=== PATIENT | male | born 1930 | race Caucasian/White ===

== ENCOUNTER 2018-02-27 10:13 | Inpatient (IN) | payer OTHER ==
[~2018-02-27] VITALS: Ht 170.2 cm; Wt 89.5 kg
[2018-02-27] MEDS ORDERED: CHLORTHALIDONE25 M1 PO (11:39)
[2018-02-27] MEDS ORDERED: VITAMIN D1000 UNIT PO (11:39)
[2018-02-27] MEDS ORDERED: ELIQUIS5 M1 PO (11:39)
[2018-02-27] MEDS ORDERED: MAGNESIUM500 M2 PO (11:40)
[2018-02-27] MEDS ORDERED: LOVASTATIN40 M1 PO (11:40)
[2018-02-27] MEDS ORDERED: METOPROLOL SUCC50 M2 PO (11:40)
[2018-02-27] MEDS ORDERED: LISINOPRIL40 M1 PO (11:40)
[2018-02-27] MEDS ORDERED: TAMSULOSIN HCL0.4 M1 PO (11:41)
[2018-02-27] MEDS ORDERED: POTASSIUM99 M3 PO (11:41)
[2018-02-27 11:44] LABS: ABSOLUTE BASOPHIL COUNT 0.1 /CUMM (0.0-0.2); ABSOLUTE EOSINOPHIL COUNT 0.1 /CUMM (0.0-0.7); ABSOLUTE GRANULOCYTE CT 7.1 /CUMM (1.4-6.5); ABSOLUTE LYMPH COUNT 0.8 /CUMM (1.2-3.4); ABSOLUTE MONOCYTE COUNT 1.1 /CUMM (0.10-0.60); BASOPHIL % 0.6 % (0.0-2.0); EOSINOPHIL % 0.6 % (0-5); GRANULOCYTE % 77.8 % (42.2-75.2); HEMATOCRIT 41.2 % (42-52); MEAN CORPUSCULAR HGB 30.6 PG (27.0-31.0); MEAN CORPUSCULAR HGB CONC 33.7 G/DL (33.0-37.0); MEAN CORPUSCULAR VOLUME 90.9 FL (80.0-94.0); MEAN PLATELET VOLUME 11.5 FL (7.4-10.4); PLATELET COUNT 228 /CUMM (130-400); RBC DISTRIBUTION WIDTH 13.6 % (11.5-14.5); RED BLOOD CELL CT 4.53 /CUMM (4.70-6.10); WHITE BLOOD CELL COUNT 9.1 /CUMM (4.8-10.8)
--- NOTE | 2018-02-27 12:03 | ED GI/GU/ABDOMINAL COMPLAINT ---
History of Present Illness General Chief Complaint: Male Genitourinary Problems Stated Complaint: SENT IN FOR UTI? Source: patient, family Exam Limitations: no limitations Vital Signs & Intake/Output Vital Signs & Intake/Output Vital Signs Date Time Temp Pulse Resp B/P B/P Pulse O2 O2 Flow FiO2 Mean Ox Delivery Rate 02/27 1614 98.1 91 16 164/44 97 Room Air 02/27 1343 Room Air 02/27 1305 98.6 75 16 131/63 97 Room Air 02/27 1019 97.0 84 16 121/61 97 Room Air Allergies Coded Allergies: No Known Allergies (02/27/18) Triage Note: 87 Y/O MALE SENT BY DR BROWN FOR EVAL OF CONTINUED UTI SYMPTOMS X 1 WEEK; DESPITE BEING ON COURSE OF ANTIBIOTICS. PT STATES HE HAS PAIN WITH URINATION AND HEMATURIA. DENIES LOW BACK PAIN. DENIES N/V/D. DENIES FEVERS. STATES HE FEELS "WELL" OTHERWISE. Triage Nurses Notes Reviewed? yes Onset: Abrupt Duration: day(s): (10), constant, continues in ED, getting worse Timing: single episode today Quality/Severity: fullness Severity Numbers: 6 Location: suprapubic, urethral Radiation: no radiation Activities at Onset: none Prior Abdominal Problems: none Past Sexual History: Unobtainable at this time No Modifying Factors: none Modifying Factors: Worsens With: urinating. Associated Symptoms: urinary frequency HPI: 87 YEAR OLD MALE WITH HX OF AFIB ON ELIQUIS PRESENTS FOR EVAL OF HEMATURIA, FREQUENCY AND URGENCY. SYMPTOMS HAVE BEEN GOING ON FOR 10 DAYS. He was initially seen by his primary care doctor and was started on Bactrim. Urine culture that time was positive. He states that since then he has had worsening gross hematuria is also passing clots. He reports he feels the need to urinate but only small amount of urine is coming out. He has some superpubic pressure. No fever or back pain no chest pain or shortness of breath. History of BPH and has had prostate surgery in the past unsure exactly what OR what for. No history of prostate cancer. (Niko RICHARDS,Jimmy) Reconcile Medications Apixaban (Eliquis) 5 MG TABLET 1 TAB PO BID BLOOD THINNER (Reported) Chlorthalidone 25 MG TABLET 1 TAB PO DAILY WATER RETENTION (Reported) Cholecalciferol (Vitamin D3) (Vitamin D) 1,000 UNIT TABLET 1 TAB PO DAILY VITAMIN SUPPORT (Reported) Lisinopril 40 MG TABLET 1 TAB PO DAILY HEART (Reported) Lovastatin 40 MG TABLET 1.5 TAB PO DAILY CHOLESTEROL (Reported) with food Magnesium Oxide (Magnesium) 500 MG CAPSULE 1 CAP PO DAILY SUPPLEMENT ( Reported) Metoprolol Succinate 50 MG TAB.ER.24H 1 TAB PO DAILY HEART (Reported) Potassium 99 MG TABLET 1 TAB PO DAILY SUPPLEMENT (Reported) Tamsulosin HCl 0.4 MG CAP.ER.24H 1 CAP PO DAILY BPH (Reported) (Blaise Munoz DO) Past History Travel History Traveled to [place] past 21 day No Medical History Any Pertinent Medical History? 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 No (Jimmy Sawyer) Review of Systems Review of Systems Constitutional: Reports: no symptoms. EENTM: Reports: no symptoms. Respiratory: Reports: no symptoms. Cardiovascular: Reports: no symptoms. GI: Reports: no symptoms. Genitourinary: Reports: see HPI, frequency, hematuria, hesitation, urgency. Musculoskeletal: Reports: no symptoms. Skin: Reports: no symptoms. Neurological/Psychological: Reports: no symptoms. Hematologic/Endocrine: Reports: no symptoms. Immunologic/Allergic: Reports: no symptoms. All Other Systems: Reviewed and Negative (Jimmy Sawyer) Physical Exam Physical Exam General Appearance: well developed/nourished, no apparent distress, alert, awake Head: atraumatic, normal appearance Eyes: Bilateral: normal appearance, PERRL, EOMI. Ears, Nose, Throat, Mouth: hearing grossly normal, moist mucous membrane Neck: normal inspection, supple, full range of motion Respiratory: normal breath sounds, chest non-tender, no respiratory distress, lungs clear Cardiovascular: regular rate/rhythm, normal peripheral pulses Peripheral Pulses: 2+ radial (R), 2+ radial (L) Gastrointestinal: normal bowel sounds, soft, no organomegaly, tenderness ( suprapubic) Back: normal inspection, normal range of motion, no CVA tenderness Extremities: normal range of motion Neurologic/Psych: no motor/sensory deficits, awake, alert, oriented x 3, normal gait, normal mood/affect Skin: intact, normal color, warm/dry Core Measures ACS in differential dx? No Sepsis Present: No Sepsis Focused Exam Completed? No (Niko RICHARDS,Jimmy) Progress Differential Diagnosis: prostatitis, pyelonephritis, SBO, ureterolithiasis, urinary retention, urethritis, UTI/pyelo, prostate cancer, bladder cancer, renal cell carcinoma, obstructive uropathy Plan of Care: Orders Procedure Date/time Status CBC WITHOUT DIFFERENTIAL 02/28 06 Active BASIC ELECTROLYTES PLUS BUN&CR 02/28 06 Active Regular Diet 02/27 D Active Weight 02/27 1735 Active Vital Signs 02/27 1735 Active Teach/Educate 02/27 173 Active Pain Treatment and Response 02/27 173 Active Nutritional Intake, Monitor 02/27 173 Active Isolation 02/27 1735 Active Intake & Output 02/27 1735 Active Patient Care Conference 02/27 1735 Active Activity/Ambulation 02/27 1735 Active Lab Add-on Test 02/27 1529 Active Pathway - chart 02/27 1522 Active House Staff 02/27 1522 Active Code Status 02/[address] in observation 02/27 1510 Active ED Holding Orders 02/27 1510 Active Vital Signs 02/27 1510 Active Code Status 02/27 1510 Complete Patient Data 02/27 1435 Active Intake & Output 02/27 1431 Active LACTIC ACID 02/27 1413 Complete EKG 02/27 1335 Active Continuous Bladder Irrigation 02/27 1235 Active Farah, Insertion/Removal/Asses 02/27 1214 Active CULTURE,URINE 02/27 1214 Active Add-on Test (ER Only) 02/27 1201 Active PARTIAL THROMBOPLASTIN TIME 02/27 1130 Complete PROTHROMBIN TIME 02/27 1130 Complete URINE TOTAL PROT/CREAT RATIO 02/27 1113 Complete URINALYSIS 02/27 1113 Complete TROPONIN LEVEL 02/27 1113 Complete LACTIC ACID 02/27 1113 Complete COMPREHENSIVE METABOLIC PANEL 02/27 1113 Complete CBC WITHOUT DIFFERENTIAL 02/27 1113 Complete VTE Mechanical Prophylaxis 02/27 UNK Active Nursing Misc 02/27 UNK Active Current Medications Sig/Markos Start time Last Medication Dose Stop Time Status Admin Magnesium Oxide 400 MG DAILY 02/28 0900 AC (Mag-Ox) Metoprolol Succinate 50 MG DAILY 02/28 0900 AC (Toprol Xl) Tamsulosin HCl 0.4 MG DAILY 02/28 0900 AC (Flomax) Ampicillin 1,000 MG Q6 02/27 1800 AC (Omnipen) Sodium Chloride 100 ML (Normal Saline 0.9%) Atorvastatin Calcium 20 MG 1700 02/27 1700 AC (Lipitor) Ceftriaxone Sodium 1,000 MG Q24H 02/27 1700 CAN (Rocephin) Cholecalciferol 1,000 IU DAILY 02/27 1611 AC (Vitamin D) Acetaminophen 650 MG Q6P PRN 02/27 1530 AC (Tylenol) Laboratory Tests 02/27/18 1418: Lactic Acid < 0.5 L 02/27/18 1154: Urine Color BLDY H, Urine Clarity CLDY H, Urine pH 7.0, Ur Specific [place] 1.015, Urine Protein >=300 H, Urine Ketones 15 H, Urine Nitrite POS H, Urine Bilirubin NEG@ICTO, Urine Urobilinogen >=8.0 H, Ur Leukocyte Esterase MOD H, Ur Microscopic SEDIMENT EXAMINED, Urine RBC PACKD H, Urine WBC 15-25 H, Ur Epithelial Cells RARE, Micro UA Comment , Urine Hemoglobin LARGE H, Urine Glucose 100 H 02/27/18 1130: Anion Gap 15, Estimated GFR 52 L, BUN/Creatinine Ratio 19.2, Glucose 110 H, Lactic Acid 3.3 H, Calcium 9.2, Total Bilirubin 0.9, AST 60 H, ALT 60, Alkaline Phosphatase 65, Troponin I 0.02, Total Protein 7.2, Albumin 3.8, Globulin 3.4, Albumin/Globulin Ratio 1.1, PT 18.0 H, INR 1.64 H, APTT 31, CBC w Diff NO MAN DIFF REQ, RBC 4.53 L, MCV 90.9, MCH 30.6, MCHC 33.7, RDW 13.6, MPV 11.5 H, Gran % 77.8 H, Lymphocytes % 8.9 L, Monocytes % 12.1 H, Eosinophils % 0.6, Basophils % 0.6, Absolute Granulocytes 7.1 H, Absolute Lymphocytes 0.8 L, Absolute Monocytes 1.1 H, Absolute Eosinophils 0.1, Absolute Basophils 0.1 02/27/18 1113: Ur Random Creatinine 140.9, U Random Total Protein 3820 H, Protein/Creatinin Ratio 27.1 H Microbiology 02/27 1214 URINE ROUT: Urine Culture - ORD Patient is here with gross hematuria. He is anticoagulated. Patient was bladder scanned and is showing almost 2 L in his bladder. A Farah was placed and removed the 2 L. CBI was initiated. Urine is showing signs of infection cultures were sent. Blood work shows a lactic acid of 3.[address] scan of the abdomen and pelvis is unremarkable. Spoke with urologist Dr. SOTO he'll come to see the patient. Hold Lannyis. Patient will require admission for urology consult, serial labs, IV fluids, IV antibiotics. Schedule Dr. Munoz he agrees. Diagnostic Imaging: Viewed by Me: CT Scan. Discussed w/RAD: CT Scan. Radiology Impression: PATIENT: ROSA M POLLARD PRESENT AGE: 87 PATIENT ACCOUNT NO: [id number] : [birth year] LOCATION: [facility] ORDERING PHYSICIAN: Jimmy RICHARDS SERVICE DATE: 02/27/18 EXAM TYPE: CAT - CT ABD & PELVIS W/O IV CONTRAS EXAMINATION: CT ABDOMEN AND PELVIS WITHOUT CONTRAST CLINICAL INFORMATION: Hematuria, urinary frequency and urgency. Differential diagnosis includes kidney stones, pyelonephritis and prostatitis. COMPARISON: 03/14/2008 TECHNIQUE: Multidetector volumetric imaging was performed from the superior aspect of the liver through the pubic symphysis. Sagittal and coronal reformatted images were obtained on the technologist's workstation. DLP: 406.12 mGy-cm FINDINGS: LUNG BASES: Pacer lead projects over the right ventricle. LIVER, GALLBLADDER, AND BILIARY TREE: The liver is normal in size, shape, and attenuation. No focal hepatic lesion or biliary ductal dilatation is present. The gallbladder is unremarkable with no evidence of radiopaque gallstones, gallbladder wall thickening, or obvious pericholecystic inflammatory changes. PANCREAS: Unremarkable. SPLEEN: Unremarkable. ADRENAL GLANDS: Unremarkable. KIDNEYS AND URETERS: The kidneys are normal in size, shape, and attenuation. No hydronephrosis, hydroureter, or calculi are seen. Vascular calcifications. No perinephric stranding. BLADDER: The bladder is decompressed with a Farah catheter and cannot be evaluated. GASTROINTESTINAL TRACT: Diverticulosis without CT evidence of diverticulitis. No evidence of bowel obstruction. The appendix is not seen but there are no inflammatory changes around the cecum to suggest acute appendicitis. Small to moderately sized hiatal hernia. ABDOMINAL WALL: Right inguinal hernia repair appears intact. No significant or recurrent abdominal wall hernia. No abdominal ascites. LYMPH NODES: No lymphadenopathy within the abdomen or pelvis. VASCULAR: Marked atherosclerosis of the abdominal aorta without evidence of aneurysm. PELVIC VISCERA: Mild enlargement of the prostate gland. No pelvic ascites. OSSEOUS STRUCTURES: Diffusely decreased bone mineral density. Degenerative changes of the spine. No suspicious or acute osseous abnormality. IMPRESSION: 1. No evidence of acute abnormality within the abdomen or pelvis. No evidence of urolithiasis. 2. The bladder is decompressed with a Farah catheter and cannot be evaluated. 3. The prostate is mildly enlarged. 4. Diverticulosis without CT evidence of diverticulitis. DICTATED BY: Vivien Morocho MD DATE/TIME DICTATED:1338 RUBBER SPLICER:JAC DATE/TIME TRANSCRIBED:02/27/181338 CONFIDENTIAL, DO NOT COPY WITHOUT APPROPRIATE AUTHORIZATION. Initial ED EKG: AFIB (RATE 78), VENTRICULAR PACED (Jimmy Sawyer) Departure Departure Disposition: STILL A PATIENT Condition: Stable Clinical Impression Primary Impression: Hematuria Qualifiers: Hematuria type: gross Qualified Code: R31.0 - Gross hematuria Referrals: Chalo SANTOS,James Guerrero (PCP/Family) Departure Forms: Customer Survey General Discharge Information Observation Note Spoke With: Santiago Ray MD Physician Advisor Notified: BLAISE MUNOZ DO Place Patient In: Non-ED OBS Care Area Rationale for Observation: My rational for observation is as follows [serial labs, IV antibiotics, follow- up cultures, urology consult, IV fluids]. (Jimmy Sawyer) PA/CHOIR MEMBER Co-Sign Statement Statement: ED Attending supervision documentation- [X] I saw and evaluated the patient. I have also reviewed all the pertinent lab results and diagnostic results. I agree with the findings and the plan of care as documented in the PA's/CHOIR MEMBER's documentation. [] I have reviewed the ED Record and agree with the PA's/CHOIR MEMBER's documentation. [] Additions or exceptions (if any) to the PAs/CHOIR MEMBER's note and plan are summarized below: [] I saw and personally examined the patient and I agree with the PAs evaluation. Severe gross hematuria. He is being admitted to the hospital for further care. (Blaise Munoz DO)
[2018-02-27 12:26] LABS: PTT 31 SEC (25-37)
--- NOTE | 2018-02-27 14:03 | CT SCAN REPORT ---
EXAMINATION: CT ABDOMEN AND PELVIS WITHOUT CONTRAST CLINICAL INFORMATION: Hematuria, urinary frequency and urgency. Differential diagnosis includes kidney stones, pyelonephritis and prostatitis. COMPARISON: 03/14/2008 TECHNIQUE: Multidetector volumetric imaging was performed from the superior aspect of the liver through the pubic symphysis. Sagittal and coronal reformatted images were obtained on the technologist's workstation. DLP: 406.12 mGy-cm FINDINGS: LUNG BASES: Pacer lead projects over the right ventricle. LIVER, GALLBLADDER, AND BILIARY TREE: The liver is normal in size, shape, and attenuation. No focal hepatic lesion or biliary ductal dilatation is present. The gallbladder is unremarkable with no evidence of radiopaque gallstones, gallbladder wall thickening, or obvious pericholecystic inflammatory changes. PANCREAS: Unremarkable. SPLEEN: Unremarkable. ADRENAL GLANDS: Unremarkable. KIDNEYS AND URETERS: The kidneys are normal in size, shape, and attenuation. No hydronephrosis, hydroureter, or calculi are seen. Vascular calcifications. No perinephric stranding. BLADDER: The bladder is decompressed with a Farah catheter and cannot be evaluated. GASTROINTESTINAL TRACT: Diverticulosis without CT evidence of diverticulitis. No evidence of bowel obstruction. The appendix is not seen but there are no inflammatory changes around the cecum to suggest acute appendicitis. Small to moderately sized hiatal hernia. ABDOMINAL WALL: Right inguinal hernia repair appears intact. No significant or recurrent abdominal wall hernia. No abdominal ascites. LYMPH NODES: No lymphadenopathy within the abdomen or pelvis. VASCULAR: Marked atherosclerosis of the abdominal aorta without evidence of aneurysm. PELVIC VISCERA: Mild enlargement of the prostate gland. No pelvic ascites. OSSEOUS STRUCTURES: Diffusely decreased bone mineral density. Degenerative changes of the spine. No suspicious or acute osseous abnormality. IMPRESSION: 1. No evidence of acute abnormality within the abdomen or pelvis. No evidence of urolithiasis. 2. The bladder is decompressed with a Farah catheter and cannot be evaluated. 3. The prostate is mildly enlarged. 4. Diverticulosis without CT evidence of diverticulitis.
--- NOTE | 2018-02-27 14:42 | Cons- Urology ---
General Information and HPI Consulting Request Date of Consult: 02/27/18 Requested By: ER staff Reason for Consult: Gross hematuria Source of Information: patient, family Exam Limitations: no limitations History of Present Illness: This patient has had about 1 week of dysuria, urinary frequency and difficulty voiding. He was treated with abx by his pcp but his sx's did not improve. He then developed gross hematuria with clots and was referred to the ER. He denies fever, chills or back pain. He is on eloquis for A-fib. He has a remote, light smoking hx. He underwent a TURP many years ago by Dr Rebekah Santoyo. He remembers having one previous UTI several years ago. He denies having gross hematuria in the past. In the ER a desai was placed for 800 cc of bloody urine. CBI was started and the drainage is mostly clear. He did have a CT of the abd and pelvis. This showed a normal upper urinary tract. The bladder was empty due to his indwelling desai and could not be evaluated Allergies/Medications Allergies: Coded Allergies: No Known Allergies (02/27/18) Home Med List: Apixaban (Eliquis) 5 MG TABLET 1 TAB PO BID BLOOD THINNER (Reported) Chlorthalidone 25 MG TABLET 1 TAB PO DAILY WATER RETENTION (Reported) Cholecalciferol (Vitamin D3) (Vitamin D) 1,000 UNIT TABLET 1 TAB PO DAILY VITAMIN SUPPORT (Reported) Lisinopril 40 MG TABLET 1 TAB PO DAILY HEART (Reported) Lovastatin 40 MG TABLET 1 TAB PO DAILY CHOLESTEROL (Reported) with food Magnesium Oxide (Magnesium) 500 MG CAPSULE 1 CAP PO DAILY SUPPLEMENT ( Reported) Metoprolol Succinate 50 MG TAB.ER.24H 1 TAB PO DAILY HEART (Reported) Potassium 99 MG TABLET 1 TAB PO DAILY SUPPLEMENT (Reported) Tamsulosin HCl 0.4 MG CAP.ER.24H 1 CAP PO DAILY BPH (Reported) Past History Medical History Neurological: NONE EENT: NONE Cardiovascular: AFIB, hypertension, HIGH CHOLESTEROL Respiratory: NONE Gastrointestinal: NONE Hepatic: NONE Renal: NONE Musculoskeletal: NONE Psychiatric: NONE Endocrine: NONE Blood Disorders: NONE Cancer(s): NONE HUB ASSOCIATE/Reproductive: NONE Exam & Diagnostic Data Vital Signs and I&O Vital Signs Date Time Temp Pulse Resp B/P B/P Pulse O2 O2 Flow FiO2 Mean Ox Delivery Rate 02/27 1343 Room Air 02/27 1305 98.6 75 16 131/63 97 Room Air 02/27 1019 97.0 84 16 121/61 97 Room Air Intake & Output 02/27 1600 02/27 0800 02/27 0000 02/26 1600 02/26 0800 02/26 0000 Intake Total 4000 Output Total 1500 Balance 2500 Intake, IV 1000 Intake, Other 3000 Output, Urine 1500 Patient 190 lb Weight Weight Reported by Patient Measurement Method Back: No CVA tenderness Abd: soft and non tender. Bladder not palpably distended Genitalia: 3-way desai in place with CBI running. Drainage is mostly clear. Otherwise normal KENNY: Prostate 35 grams, firm but non nodular Laboratory Tests 02/27 02/27 1418 1154 Chemistry Lactic Acid (0.7 - 2.1 mmol/L) < 0.5 L Urines Urine Color (YEL,AMB,STR) BLDY H Urine Clarity (CLEAR) CLDY H Urine pH (5.0 - 8.0) 7.0 Ur Specific [place] (1.001 - 1.035) 1.015 Urine Protein (NEG,<30 MG/DL) >=300 H Urine Ketones (NEG) 15 H Urine Nitrite (NEG) POS H Urine Bilirubin (NEG) NEG@ICTO Urine Urobilinogen (0.1 - 1.0 EU/dl) >=8.0 H Ur Leukocyte Esterase (NEG) MOD H Ur Microscopic SEDIMENT EXAMINED Urine RBC (0 - 5 /HPF) PACKD H Urine WBC (0 - 2 /HPF) 15-25 H Ur Epithelial Cells (NONE,FEW) RARE Micro UA Comment Urine Hemoglobin (NEG) LARGE H Urine Glucose (N MG/DL) 100 H 02/27 1130 Chemistry Sodium (137 - 145 mmol/L) 141 Potassium (3.5 - 5.1 mmol/L) 4.5 Chloride (98 - 107 mmol/L) 102 Carbon Dioxide (22 - 30 mmol/L) 24 Anion Gap (5 - 16) 15 BUN (9 - 20 mg/dL) 25 H Creatinine (0.7 - 1.2 mg/dL) 1.3 H Estimated GFR (>60 ml/min) 52 L BUN/Creatinine Ratio (7 - 25 %) 19.2 Glucose (65 - 99 mg/dL) 110 H Lactic Acid (0.7 - 2.1 mmol/L) 3.3 H Calcium (8.4 - 10.2 mg/dL) 9.2 Total Bilirubin (0.2 - 1.3 mg/dL) 0.9 AST (17 - 59 U/L) 60 H ALT (21 - 72 U/L) 60 Alkaline Phosphatase (< 127 U/L) 65 Troponin I (<0.11 ng/ml) 0.02 Total Protein (6.3 - 8.2 g/dL) 7.2 Albumin (3.5 - 5.0 g/dL) 3.8 Globulin (1.9 - 4.2 gm/dL) 3.4 Albumin/Globulin Ratio (1.1 - 2.2 %) 1.1 Coagulation PT (9.4 - 12.5 SEC) 18.0 H INR (0.90 - 1.17) 1.64 H APTT (25 - 37 SEC) 31 Hematology CBC w Diff NO MAN DIFF REQ WBC (4.8 - 10.8 /CUMM) 9.1 RBC (4.70 - 6.10 /CUMM) 4.53 L Hgb (14.0 - 18.0 G/DL) 13.9 L Hct (42 - 52 %) 41.2 L MCV (80.0 - 94.0 FL) 90.9 MCH (27.0 - 31.0 PG) 30.6 MCHC (33.0 - 37.0 G/DL) 33.7 RDW (11.5 - 14.5 %) 13.6 Plt Count (130 - 400 /CUMM) 228 MPV (7.4 - 10.4 FL) 11.5 H Gran % (42.2 - 75.2 %) 77.8 H Lymphocytes % (20.5 - 51.1 %) 8.9 L Monocytes % (1.7 - 9.3 %) 12.1 H Eosinophils % (0 - 5 %) 0.6 Basophils % (0.0 - 2.0 %) 0.6 Absolute Granulocytes (1.4 - 6.5 /CUMM) 7.1 H Absolute Lymphocytes (1.2 - 3.4 /CUMM) 0.8 L Absolute Monocytes (0.10 - 0.60 /CUMM) 1.1 H Absolute Eosinophils (0.0 - 0.7 /CUMM) 0.1 Absolute Basophils (0.0 - 0.2 /CUMM) 0.1 Assessment/Plan Assessment/Plan Imp: 1. Gross hematuria. Likely due to UTI in setting of anticoagulation for A -fib 2. BPH. Hx of TURP in the past 3. A-fib Plan: 1. Desai manually irrigated. No significant clots obtained 2. Continue CBI. Nurses may manually irrigate if needed for catheter not draining 3. Agree with ceftriaxone 4. Hold eloquis for now 5. f/u culture 6. Will eventually need cystoscopy either as in or outpatient depending on course Consult Acknowledgment - Thank you for your consult request.
--- NOTE | 2018-02-27 15:01 | History & Physical ---
General Information and HPI Source of Information: patient, family Exam Limitations: no limitations Allergies/Medications Allergies: Coded Allergies: No Known Allergies (02/27/18) Home Med list Apixaban (Eliquis) 5 MG TABLET 1 TAB PO BID BLOOD THINNER (Reported) Chlorthalidone 25 MG TABLET 1 TAB PO DAILY WATER RETENTION (Reported) Cholecalciferol (Vitamin D3) (Vitamin D) 1,000 UNIT TABLET 1 TAB PO DAILY VITAMIN SUPPORT (Reported) Lisinopril 40 MG TABLET 1 TAB PO DAILY HEART (Reported) Lovastatin 40 MG TABLET 1.5 TAB PO DAILY CHOLESTEROL (Reported) with food Magnesium Oxide (Magnesium) 500 MG CAPSULE 1 CAP PO DAILY SUPPLEMENT ( Reported) Metoprolol Succinate 50 MG TAB.ER.24H 1 TAB PO DAILY HEART (Reported) Potassium 99 MG TABLET 1 TAB PO DAILY SUPPLEMENT (Reported) Tamsulosin HCl 0.4 MG CAP.ER.24H 1 CAP PO DAILY BPH (Reported) Past History Travel History Traveled to [place] past 21 day No Medical History Neurological: NONE EENT: NONE Cardiovascular: AFIB, hypertension, HIGH CHOLESTEROL Respiratory: NONE Gastrointestinal: NONE Hepatic: NONE Renal: NONE Musculoskeletal: NONE Psychiatric: NONE Endocrine: NONE Blood Disorders: NONE Cancer(s): NONE HEALTH CARE RECRUITER/Reproductive: NONE Surgical History Surgical History: non-contributory Past Family/Social History Sexual History Past Sexual History Unobtainable at this time Core Measures/Misc (04/24) Sepsis (View protocol) If YES complete Sepsis Event Note If YES complete Sepsis Event Note
--- NOTE | 2018-02-27 15:17 | History & Physical ---
Marc SANTOS,[facility] 02/27/18 1516: General Information and HPI MD Statement: I have seen and personally examined ROSA M POLLARD and documented this H&P. The patient is a 87 year old M who presented with a patient stated chief complaint of [blood in urine]. Source of Information: patient, family Exam Limitations: no limitations History of Present Illness: 87 yo M with PMH of hypertension, hyperlipidemia and atrial fibrilliation [place] [address] Loomis was sent in to the ED by his PCP for evaluation of bloody urine. Most of the history has been obtained from the family. Around a week or so ago, the patient started experiencing difficulty urinating with symptoms of hesitancy and passing small amount of urine with voiding along with blood and clots in his urine. He denies any burning sensation with urination. He saw his PCP last week and was told he had a UTI (growing aerococcus) and treated with Bactrim. However, he did not have any improvement in his symptoms. This morning he went to Dr Isabel again who on examination noticed him to have a 'full bladder'. He referred the patient to the ED for further evaluation. He denies any fevers but did experience some chills last week which has since resolved. He reports no changes in his appetite recently. He normally ambulates with the aid of a cane. No falls in the past year. Denies smoking, occasionally drinks alcohol. No other complaints. In the ED, a desai was placed which drained 800cc of bloody urine. He was started on CBI. Allergies/Medications Allergies: Coded Allergies: No Known Allergies (02/27/18) Home Med list Apixaban (Eliquis) 5 MG TABLET 1 TAB PO BID BLOOD THINNER (Reported) Chlorthalidone 25 MG TABLET 1 TAB PO DAILY WATER RETENTION (Reported) Cholecalciferol (Vitamin D3) (Vitamin D) 1,000 UNIT TABLET 1 TAB PO DAILY VITAMIN SUPPORT (Reported) Lisinopril 40 MG TABLET 1 TAB PO DAILY HEART (Reported) Lovastatin 40 MG TABLET 1.5 TAB PO DAILY CHOLESTEROL (Reported) with food Magnesium Oxide (Magnesium) 500 MG CAPSULE 1 CAP PO DAILY SUPPLEMENT ( Reported) Metoprolol Succinate 50 MG TAB.ER.24H 1 TAB PO DAILY HEART (Reported) Potassium 99 MG TABLET 1 TAB PO DAILY SUPPLEMENT (Reported) Tamsulosin HCl 0.4 MG CAP.ER.24H 1 CAP PO DAILY BPH (Reported) Past History Travel History Traveled to [place] past 21 day No Medical History Neurological: NONE EENT: NONE Cardiovascular: AFIB, hypertension, HIGH CHOLESTEROL Respiratory: NONE Gastrointestinal: NONE Hepatic: NONE Renal: NONE Musculoskeletal: NONE Psychiatric: NONE Endocrine: NONE Blood Disorders: NONE Cancer(s): NONE NEUROSURGEON/Reproductive: NONE Surgical History Surgical History: non-contributory Past Family/Social History Sexual History Past Sexual History Unobtainable at this time Review of Systems Review of Systems Constitutional: Reports: chills. Denies: fever. EENTM: Reports: no symptoms. Cardiovascular: Denies: chest pain, palpitations. Respiratory: Denies: short of breath. GI: Reports: abdominal pain. Genitourinary: Reports: dysuria, hematuria, hesitation. Musculoskeletal: Reports: no symptoms. Skin: Reports: no symptoms. Neurological/Psychological: Reports: no symptoms. Hematologic/Endocrine: Reports: bleeding. Exam & Diagnostic Data Last 24 Hrs of Vital Signs/I&O Vital Signs Date Time Temp Pulse Resp B/P B/P Pulse O2 O2 Flow FiO2 Mean Ox Delivery Rate 02/27 1343 Room Air 02/27 1305 98.6 75 16 131/63 97 Room Air 02/27 1019 97.0 84 16 121/61 97 Room Air Intake & Output 02/27 1600 02/27 0800 02/27 0000 Intake Total 4000 Output Total 1500 Balance 2500 Intake, IV 1000 Intake, Other 3000 Output, Urine 1500 Patient 190 lb Weight Weight Reported by Patient Measurement Method Physical Exam General Appearance Alert, Oriented X3, Cooperative, No Acute Distress Skin No Rashes, No Breakdown Skin Temp/Moisture Exam: Warm/Dry Sepsis Skin Exam (color): Normal for Ethnicity HEENT Atraumatic Cardiovascular Normal S1, Normal S2, No Murmurs Lungs Clear to Auscultation, Normal Air Movement Abdomen Soft, No Tenderness, no CVA tenderness Neurological Normal Speech Extremities No Edema, Normal Pulses Last 24 Hrs of Labs/Rg: Laboratory Tests 02/27/18 1418: Lactic Acid < 0.5 L 02/27/18 1154: Urine Color BLDY H, Urine Clarity CLDY H, Urine pH 7.0, Ur Specific [place] 1.015, Urine Protein >=300 H, Urine Ketones 15 H, Urine Nitrite POS H, Urine Bilirubin NEG@ICTO, Urine Urobilinogen >=8.0 H, Ur Leukocyte Esterase MOD H, Ur Microscopic SEDIMENT EXAMINED, Urine RBC PACKD H, Urine WBC 15-25 H, Ur Epithelial Cells RARE, Micro UA Comment , Urine Hemoglobin LARGE H, Urine Glucose 100 H 02/27/18 1130: Anion Gap 15, Estimated GFR 52 L, BUN/Creatinine Ratio 19.2, Glucose 110 H, Lactic Acid 3.3 H, Calcium 9.2, Total Bilirubin 0.9, AST 60 H, ALT 60, Alkaline Phosphatase 65, Troponin I 0.02, Total Protein 7.2, Albumin 3.8, Globulin 3.4, Albumin/Globulin Ratio 1.1, PT 18.0 H, INR 1.64 H, APTT 31, CBC w Diff NO MAN DIFF REQ, RBC 4.53 L, MCV 90.9, MCH 30.6, MCHC 33.7, RDW 13.6, MPV 11.5 H, Gran % 77.8 H, Lymphocytes % 8.9 L, Monocytes % 12.1 H, Eosinophils % 0.6, Basophils % 0.6, Absolute Granulocytes 7.1 H, Absolute Lymphocytes 0.8 L, Absolute Monocytes 1.1 H, Absolute Eosinophils 0.1, Absolute Basophils 0.1 02/27/18 1113: Ur Random Creatinine Pending, U Random Total Protein Pending Microbiology 02/27 1214 URINE ROUT: Urine Culture - ORD Assessment/Plan Assessment: 87 yo M with PMH of hypertension, hyperlipidemia and atrial fibrilliation s/p pac[place] [address] Loomis was sent in to the ED by his PCP for evaluation of bloody urine. Assessment: 1. UTI 2. Hematuria 3. EMRE 4. Elevated Lactic Acid - resolved 5. History of A.fib and Hypertension Plan: * Admit patient to general medicine in obs * His UA is suggestive of persistent infection. Also shows significant proteinuria. Would obtain spot protein/Cr ratio. * Start Ampicillin 1g q6. * Follow up urine culture * Would obtain records of urine culture from last week from Dr Isabel's office. * Will hold Eliquis for now. * Continue CBI. * His Cr is slightly elevated which is likely prerenal. He received 1L of NS in the ER. * Trend renal function. * Hold Lisinopril and Chlorthalidone. * Further plans of cystoscopy as per urology. * Diet: Regular * DVT Prophylaxis: ALPS only. Will hold AC * Code: Full Code As Ranked By This Provider Problem List: 1. Hematuria Qualifiers Hematuria type: gross Qualified Code: R31.0 - Gross hematuria Core Measures/Misc (04/24) Acute Coronary Syndrome ACS Diagnosis: No Congestive Heart Failure Congestive Heart Failure Diagnosis No Cerebrovascular Accident CVA/TIA Diagnosis: No VTE (View Protocol) VTE Risk Factors Age>40 No Mechanical VTE Prophylaxis d/t N/A MechProphylax Ordered No VTE Pharm Prophylaxis d/t Medical Contraindication Sepsis (View protocol) Sepsis Present: No If YES complete Sepsis Event Note If YES complete Sepsis Event Note Santiago Ray MD 02/27/18 8107: Core Measures/Misc (04/24) Sepsis (View protocol) If YES complete Sepsis Event Note If YES complete Sepsis Event Note Attending MD Review Statement Attending Statement Attending MD Statement: examined this patient, discuss w/resident/PA/BACKUP SAWYER, agreed w/resident/PA/BACKUP SAWYER, discussed with family, reviewed EMR data (avail), reviewed images, amended to note Attending Assessment/Plan: The patient is an 87 yo male with h/o HTN, HL, afib (on Eliquis)- s/p pacer ( 2011), and BPH who presented in the day of admission with gross hematuria. The patient began having some urinary symptoms approximately 1 week prior to admission with c/o fullness in bladder region and some hesitancy/difficulty voiding. His PCP (Dr. Isabel) had done a urine evaluation and placed him on Bactrim. As per his son, his culture came back "Aerococcus" and he was continued on Bactrim. Noted substantial bleeding today and thus was brought to ED. He denied any h/o bleeding on Eliquis, lightheadedness, dyspnea, chest pain or fever/back pain. Did have some pyuria. Physical Exam; VS: T 98.6, P 75, R 16, BP 131/63, PO 97% RA HEENT: eyes- PERRLA, EOMI marcello- dry mucosa Neck: no JVD/bruits Chest: clear Cor: RRR nl S1, S2 w/o murm Abd: BS+, soft, NT, - Masses or HSM Ext: no edema, pulses 1+ Neuro: alert & oriented, non-focal exam, gait not tested Labs/Tests- as above Impression/Plan: #Gross Hematuria- as above, noted over last week some urinary symptoms with increased blood today. Had been on antibiotic prescribed by PCP. Plan: Will bring in to general medicine under OBServation status per case management. Catheter for continuous bladder irrigation placed in ED. Urology consult Dr. Mercedes. Monitor blood loss. Hold Eliquis. #UTI- patient with recent "aerococcus" UTI (as per son). Was on Bactrim x 1 week. Plan: Will obtain results of prior culture from PCP/lab tomorrow. Received Ceftriaxone initially, however changed to ampicillin (based on aerococcus as per son). #Essential HTN- on Metoprolol/Lisinopril/Chlorphthalidone. Plan: Will hold Lisinopril/Chlorthalidone at present and continue Metoprolol. #BPH- noted and was on Tamsulosin. Plan: Will continue Tamsulosin. #Atrial Fibrillation- h/o this. Followed by Drs. Allison and Vladislav ([facility]). On Eliquis. Plan: Hold Eliquis at present and will discuss with Cardiology.
[2018-02-27 18:20] VITALS: BP 128/60
[2018-02-27 23:05] VITALS: BP 132/60
[2018-02-28 06:59] VITALS: BP 136/66
--- NOTE | 2018-02-28 07:19 | PN- Urology ---
Subjective Subjective: Patient sleeping Objective Vital Signs and I&Os Vital Signs Date Time Temp Pulse Resp B/P B/P Pulse O2 O2 Flow FiO2 Mean Ox Delivery Rate 02/28 0659 98.8 79 16 136/66 95 Room Air 02/27 2305 98.2 84 19 132/60 95 Room Air 02/27 1909 63 128/60 02/27 1908 63 128/60 02/27 1820 98.3 63 19 128/60 96 Room Air 02/27 1748 Room Air 02/27 1614 98.1 91 16 164/44 97 Room Air 02/27 1343 Room Air 02/27 1305 98.6 75 16 131/63 97 Room Air 02/27 1019 97.0 84 16 121/61 97 Room Air Intake & Output 02/28 0800 02/28 0000 02/27 1600 02/27 0800 02/27 0000 02/26 1600 Intake Total 472 200 2752 Output Total 124 807 6984 Balance -759 -480 2500 Intake, IV 169 012 0316 Intake, Oral 20 Intake, Other 3000 Output, Urine 034 281 6811 Patient 197 lb 190 lb 190 lb Weight Weight Bed scale Reported by Patient Measurement Method CBI drainage is clear Laboratory Tests 02/27 02/27 1418 1154 Chemistry Lactic Acid (0.7 - 2.1 mmol/L) < 0.5 L Urines Urine Color (YEL,AMB,STR) BLDY H Urine Clarity (CLEAR) CLDY H Urine pH (5.0 - 8.0) 7.0 Ur Specific [place] (1.001 - 1.035) 1.015 Urine Protein (NEG,<30 MG/DL) >=300 H Urine Ketones (NEG) 15 H Urine Nitrite (NEG) POS H Urine Bilirubin (NEG) NEG@ICTO Urine Urobilinogen (0.1 - 1.0 EU/dl) >=8.0 H Ur Leukocyte Esterase (NEG) MOD H Ur Microscopic SEDIMENT EXAMINED Urine RBC (0 - 5 /HPF) PACKD H Urine WBC (0 - 2 /HPF) 15-25 H Ur Epithelial Cells (NONE,FEW) RARE Micro UA Comment Urine Hemoglobin (NEG) LARGE H Urine Glucose (N MG/DL) 100 H 02/27 02/27 1130 1113 Chemistry Sodium (137 - 145 mmol/L) 141 Potassium (3.5 - 5.1 mmol/L) 4.5 Chloride (98 - 107 mmol/L) 102 Carbon Dioxide (22 - 30 mmol/L) 24 Anion Gap (5 - 16) 15 BUN (9 - 20 mg/dL) 25 H Creatinine (0.7 - 1.2 mg/dL) 1.3 H Estimated GFR (>60 ml/min) 52 L BUN/Creatinine Ratio (7 - 25 %) 19.2 Glucose (65 - 99 mg/dL) 110 H Lactic Acid (0.7 - 2.1 mmol/L) 3.3 H Calcium (8.4 - 10.2 mg/dL) 9.2 Total Bilirubin (0.2 - 1.3 mg/dL) 0.9 AST (17 - 59 U/L) 60 H ALT (21 - 72 U/L) 60 Alkaline Phosphatase (< 127 U/L) 65 Troponin I (<0.11 ng/ml) 0.02 Total Protein (6.3 - 8.2 g/dL) 7.2 Albumin (3.5 - 5.0 g/dL) 3.8 Globulin (1.9 - 4.2 gm/dL) 3.4 Albumin/Globulin Ratio (1.1 - 2.2 %) 1.1 Coagulation PT (9.4 - 12.5 SEC) 18.0 H INR (0.90 - 1.17) 1.64 H APTT (25 - 37 SEC) 31 Hematology CBC w Diff NO MAN DIFF REQ WBC (4.8 - 10.8 /CUMM) 9.1 RBC (4.70 - 6.10 /CUMM) 4.53 L Hgb (14.0 - 18.0 G/DL) 13.9 L Hct (42 - 52 %) 41.2 L MCV (80.0 - 94.0 FL) 90.9 MCH (27.0 - 31.0 PG) 30.6 MCHC (33.0 - 37.0 G/DL) 33.7 RDW (11.5 - 14.5 %) 13.6 Plt Count (130 - 400 /CUMM) 228 MPV (7.4 - 10.4 FL) 11.5 H Gran % (42.2 - 75.2 %) 77.8 H Lymphocytes % (20.5 - 51.1 %) 8.9 L Monocytes % (1.7 - 9.3 %) 12.1 H Eosinophils % (0 - 5 %) 0.6 Basophils % (0.0 - 2.0 %) 0.6 Absolute Granulocytes (1.4 - 6.5 /CUMM) 7.1 H Absolute Lymphocytes (1.2 - 3.4 /CUMM) 0.8 L Absolute Monocytes (0.10 - 0.60 /CUMM) 1.1 H Absolute Eosinophils (0.0 - 0.7 /CUMM) 0.1 Absolute Basophils (0.0 - 0.2 /CUMM) 0.1 Urines Ur Random Creatinine (mg/dL) 140.9 U Random Total Protein (0 - 12 mg/dL) 3820 H Protein/Creatinin Ratio (< 0.2) 27.1 H Assessment/Plan Assessment/Plan Imp: 1. Gross hematuria. Likely infection related Plan: 1. Taper off CBI today 2. continue abx 3. f/u urine culture
[2018-02-28 08:22] LABS: ABSOLUTE BASOPHIL COUNT 0.1 /CUMM (0.0-0.2); ABSOLUTE EOSINOPHIL COUNT 0.1 /CUMM (0.0-0.7); ABSOLUTE GRANULOCYTE CT 6.5 /CUMM (1.4-6.5); ABSOLUTE LYMPH COUNT 0.6 /CUMM (1.2-3.4); ABSOLUTE MONOCYTE COUNT 1.1 /CUMM (0.10-0.60); BASOPHIL % 0.7 % (0.0-2.0); EOSINOPHIL % 0.9 % (0-5); GRANULOCYTE % 77.8 % (42.2-75.2); MEAN CORPUSCULAR HGB 30.7 PG (27.0-31.0); MEAN CORPUSCULAR HGB CONC 34.3 G/DL (33.0-37.0); MEAN CORPUSCULAR VOLUME 89.6 FL (80.0-94.0); MEAN PLATELET VOLUME 11.3 FL (7.4-10.4); PLATELET COUNT 234 /CUMM (130-400); RBC DISTRIBUTION WIDTH 13.5 % (11.5-14.5); RED BLOOD CELL CT 3.95 /CUMM (4.70-6.10); WHITE BLOOD CELL COUNT 8.3 /CUMM (4.8-10.8)
--- NOTE | 2018-02-28 08:26 | Discharge Summary ---
Visit Information Visit Dates Admission Date: 02/27/18 Discharge Date: 03/03/18 Hospital Course Course Attending Physician: Santiago Ray MD Primary Care Physician: Chalo SANTOS,James Guerrero Consulting Request: Consulting Specialty: Urology (Dr. Goldstein) Consulting Physician: Dr. Pedro Goldstein [facility] Course: Mr. Horton is a 87-year-old male with a past medical history of hypertension, hyperlipidemia and A. fib status post pacemaker [place] [address] Loomis. Patient was sent to the ED by his PCP James Isabel MD for evaluation of bloody urine. Approximately a week before arrival to ED patient began to experience difficulty urinating with symptoms of hesitancy and passing small amounts of urine with voiding, along with passing blood and clots in his urine. He said his PCP last week and was diagnosed with a UTI growing enterococcus and was treated with Bactrim. ED vitals: Temperature 97.0, heart rate 84, respiratory rate 16, blood pressure 121/61, O2 sat 97% on room air. ED labs: H/H 13.9/41.2, INR 1.64, BUN 25, creatinine 1.3, lactic acid 3.3, AST 60 UA: Bloody, cloudy, positive for nitrates, urine urobilinogen high, moderate leukocyte esterase, packed RBC, large hemoglobin ED imagin. CT abdomen pelvisno evidence of acute abnormality within the abdomen or bowel at this no evidence of urolithiasis. Prostate is mildly enlarged. Diverticulosis cyst without evidence of diverticulitis. ED course: A Desai was placed which drained 800 cc of bloody urine, patient was started on CBI. Patient was started on ampicillin 1 g. Lisinopril and chlorthalidone were held due to [place] I. Eliquis was held. Urology was consulted. Patient was admitted to general medicine and observation. General medicine course: #Hematuria Upon transferred to general medicine the next day patient's CBI was discontinued. A clamp trial was successful. Patient by 60 mL's of urine, bedside ultrasound showed 900 mL of urine Desai was obstructed, clot was removed. Patient has failed voiding trial, produced very little urine bladder scan showed approximately 400 mL of urine. Desai was reinserted and patient produce hematuria and passed blood clots, Desai was irrigated. Patient will be discharged home today with Desai and will follow with Dr. Beatty on Tuesday for cystoscopy. Patient is instructed to hold Eliquis until he meets with urologist who will determine further action. Allergies: Coded Allergies: No Known Allergies (02/27/18) Disposition Summary Disposition Principal Diagnosis: Hematuria Additional Diagnosis: BPH Discharge Disposition: home or self care Discharge Instructions General Discharge Information Code Status: Full Code Patient's Diet: Regular Patient's Activity: As tolerated Follow-Up Instructions/Appts: Hold Eliquis until determined by urologist. Follow-up PCP, follow-up with Dr. Goldstein on Tuesday03/06/18 for a cystoscopy Medications at Discharge Discharge Medications: Stop taking the following medications: Apixaban (Eliquis) 5 MG TABLET ORAL TWICE DAILY Qty = 180 Continue taking these medications: Cholecalciferol (Vitamin D3) (Vitamin D) 1,000 UNIT TABLET 1 Tablet ORAL DAILY Comments: Last Taken: 03/03/18 Time:10:00 AM Chlorthalidone (Chlorthalidone) 25 MG TABLET 1 Tablet ORAL DAILY Comments: NOT GIVEN IN HOSPITAL Magnesium Oxide (Magnesium) 500 MG CAPSULE 1 Capsule ORAL DAILY Comments: Last Taken: 03/03/18 Time: 10:00 AM Lisinopril (Lisinopril) 40 MG TABLET 1 Tablet ORAL DAILY Qty = 90 Comments: NOT GIVEN IN HOSPITAL Lovastatin (Lovastatin) 40 MG TABLET 1.5 Tablet ORAL DAILY Qty = 90 Instructions: with food Comments: Last Taken: 03/03/18 Time: 5:00 PM Metoprolol Succinate (Metoprolol Succinate) 50 MG TAB.ER.24H 1 Tablet ORAL DAILY Qty = 90 Comments: Last Taken: 03/03/18 Time: 10:00 AM Potassium (Potassium) 99 MG TABLET 1 Tablet ORAL DAILY Comments: NOT GIVEN IN HOSPITAL Tamsulosin HCl (Tamsulosin HCl) 0.4 MG CAP.ER.24H 1 Capsule ORAL DAILY Qty = 90 Comments: Last Taken: 03/03/18 Time: 10:00 AM Start taking the following new medications: Amoxicillin/Clavulanate Potass (Amox-Clav 875-125 MG Tablet) 875 MG-125 MG TABLET 1 Tablet ORAL TWICE DAILY Qty = 12 No Refills Copies To: Chalo SANTOS,James Guerrero Attending MD Review Statement Documenting Attending: Santiago Ray MD Other Findings: The patient was seen and agree with the above summary and plan. The patient and his son elected to be discharged home with desai catheter. They were given the option of remaining in hospital for cystoscopy to be done Tuesday 03/06. They understood the risks as there is intermittent increased bleeding noted. He will remain off blood thinners. They were advised if significant increased bleeding or clots/obstruction to return to ED. Urology will see as OP next week and arrange OP cystoscopy and voiding trial (note, he had failed his voiding trial the day prior to discharge and had > 400 cc PVR).
[2018-02-28 08:35] LABS: HEMATOCRIT 35.4 % (42-52)
--- NOTE | 2018-02-28 08:40 | PN- Housestaff ---
See Addendum Subjective Follow-up For: UTI Subjective: No acute events overnight, afebrile. Patient has no c/o this morning, son is sitting at bedside. Patient states he is doing well, denies pain with urination, abdominal pain, blood in urine, fever, night sweats, chills, flank pain. Review of Systems Constitutional: Reports: see HPI. Objective Last 24 Hrs of Vital Signs/I&O Vital Signs Date Time Temp Pulse Resp B/P B/P Pulse O2 O2 Flow FiO2 Mean Ox Delivery Rate 02/28 1418 98.8 78 20 128/65 95 Room Air 02/28 1000 130/48 02/28 1000 130/48 02/28 0659 98.8 79 16 136/66 95 Room Air 02/27 2305 98.2 84 19 132/60 95 Room Air 02/27 1909 63 128/60 02/27 1908 63 128/60 02/27 1820 98.3 63 19 128/60 96 Room Air 02/27 1748 Room Air 02/27 1614 98.1 91 16 164/44 97 Room Air Intake & Output 02/28 1600 02/28 0800 02/28 0000 Intake Total 200 120 Output Total 959 600 Balance -759 -480 Intake, IV 200 100 Intake, Oral 20 Output, Urine 959 600 Patient 197 lb 190 lb Weight Weight Bed scale Measurement Method Physical Exam General Appearance: Alert, Oriented X3, Cooperative Skin: No Rashes HEENT: Atraumatic, EOMI Cardiovascular: Regular Rate, Normal S1, Normal S2, Systolic 2/6 murmur Lungs: Clear to Auscultation, Normal Air Movement Abdomen: Normal Bowel Sounds, Soft, No Tenderness Reproductive (MALE) Farah in place, bay contains blood tinged urine Current Medications: Current Medications Sig/Markos Start time Last Medication Dose Route Stop Time Status Admin Acetaminophen 650 MG Q6P PRN 02/27 1530 AC PO Ampicillin 1,000 MG Q6 02/27 1800 AC 02/28 Sodium Chloride 100 ML IV 1251 Atorvastatin Calcium 20 MG 1700 02/27 1700 AC 02/27 PO 1909 Ceftriaxone Sodium 1,000 MG Q24H 02/27 1700 CAN IV Cholecalciferol 1,000 IU DAILY 02/27 1611 AC 02/28 PO 1000 Magnesium Oxide 400 MG DAILY 02/28 0900 AC 02/28 PO 1000 Metoprolol Succinate 50 MG DAILY 02/28 0900 AC 02/28 PO 1000 Metoprolol Succinate 50 MG ONCE ONE 02/270 DC 02/27 PO 02/27 1731 190 Tamsulosin HCl 0.4 MG DAILY 02/28 0900 AC 02/28 PO 1000 Tamsulosin HCl 0.4 MG ONCE ONE 02/27 1730 DC 02/27 PO 02/27 1731 190 Last 24 Hrs of Lab/Rg Results Last 24 Hrs of Labs/Mics: Laboratory Tests 02/28/18 0657: Anion Gap 12, Estimated GFR > 60, BUN/Creatinine Ratio 20.0, CBC w Diff NO MAN DIFF REQ, RBC 3.95 L, MCV 89.6, MCH 30.7, MCHC 34.3, RDW 13.5, MPV 11.3 H, Gran % 77.8 H, Lymphocytes % 7.8 L, Monocytes % 12.8 H, Eosinophils % 0.9, Basophils % 0.7, Absolute Granulocytes 6.5, Absolute Lymphocytes 0.6 L, Absolute Monocytes 1.1 H, Absolute Eosinophils 0.1, Absolute Basophils 0.1 Microbiology 02/28 1504 URINE ROUT: Urine Culture - ORD Assessment/Plan Assessment: 87 yo M with PMH of hypertension, hyperlipidemia and atrial fibrilliation [place] [address] [place]oomis was sent in to the ED by his PCP for evaluation of bloody urine. Problem List: 1. Hematuria 2. UTI 3. EMRE 4. Hypertension 5. Hyperlipidemia 6. Anemia #Hematuria-patient has been CBI since yesterday, CVI became clogged yesterday patient will be due to clot in the evening cleared manually by nurse. - Urology is following patinet, will attempt off CBI---Attempted to take off CBI today, patient had passed a 60 mL's of urine, bedside ultrasound showed 900 mL's of urine, change to Farah will continue to monitor - We will continue to attempt to taper off CBI tomorrow, attempt voiding trial if patient successfully is off of CBI #UTI-patient was seen by Dr. 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 -Continue Ampicillin 1000mg q6 #Anemia- dilutional vs blood loss. H/H trending downward, patient is asymptomatic. -continue to monitor - repeat H/H #EMRE- Bun/MICA WASHER GLUER- 25/1.3 resolved, continue to monitor #Hypertension -Metoprolol 50mg #hyperlipidemia Atorvastatin 20mg DVT PPx: ALPs Diet- REgular Code status- Full code Problem List: 1. Hematuria Pain Ratin Pain Location: n/a Pain Goal: Remain pain free Pain Plan: tylenol Tomorrow's Labs & Rationales: cbc, bep
[2018-02-28 14:18] VITALS: BP 128/65
[2018-02-28 21:25] VITALS: BP 120/58
[2018-03-01 06:20] VITALS: BP 128/60
--- NOTE | 2018-03-01 08:00 | PN- Urology ---
Subjective Subjective: Comfortable Objective Vital Signs and I&Os Vital Signs Date Time Temp Pulse Resp B/P B/P Pulse O2 O2 Flow FiO2 Mean Ox Delivery Rate 03/01 0620 99.1 61 18 128/60 96 02/28 2125 99.6 81 18 120/58 95 02/28 1418 98.8 78 20 128/65 95 Room Air 02/28 1000 130/48 02/28 1000 130/48 Intake & Output 03/01 0800 03/01 0000 02/28 1600 02/28 0800 02/28 0000 02/27 1600 Intake Total 500 800 543 009 2808 Output Total 550 800 520 069 4394 Balance -550 500 0 -759 -480 2500 Intake, IV 100 667 816 7155 Intake, Oral 400 800 20 Intake, Other 3000 Output, Urine 550 800 621 183 2079 Patient 197 lb 190 lb 190 lb Weight Weight Bed scale Reported by Patient Measurement Method Abd: soft and non tender Genitalia: desai in place. CBI off. Required manual irrigation of desai yesterday for ostructed desai Assessment/Plan Assessment/Plan Imp: 1. Gross hematuria. Likely due to UTI 2. Hx of TURP in the past Plan: 1. continue amoxicillan 2. Have nurses manually irrigate edsai q shift 3. If urine fairly clear then possible voiding trial in AM
--- NOTE | 2018-03-01 08:04 | PN- Housestaff ---
See Addendum Subjective Follow-up For: hematuria Subjective: no acute events overnight, afebrile. Patient has bloody urine in the desai bag about 50-100mL. Denies suprapubic pain Review of Systems Constitutional: Reports: see HPI. Objective Last 24 Hrs of Vital Signs/I&O Vital Signs Date Time Temp Pulse Resp B/P B/P Pulse O2 O2 Flow FiO2 Mean Ox Delivery Rate 03/01 1048 Room Air Room Air 03/01 0922 99.1 61 18 128/60 03/01 0921 99.1 61 18 128/60 03/01 0620 99.1 61 18 128/60 96 02/28 2125 99.6 81 18 120/58 95 02/28 1418 98.8 78 20 128/65 95 Room Air Intake & Output 03/01 1600 03/01 0800 03/01 0000 Intake Total 560 500 Output Total 550 Balance 10 500 Intake, IV 200 100 Intake, Oral 360 400 Output, Urine 550 Physical Exam General Appearance: Alert, Oriented X3, Cooperative Skin: No Rashes Cardiovascular: Regular Rate, Normal S1, Normal S2 Lungs: Clear to Auscultation, Normal Air Movement Abdomen: Normal Bowel Sounds, Soft, No Tenderness Extremities: No Edema, Normal Pulses Assessment/Plan Assessment: 87 yo M with PMH of hypertension, hyperlipidemia and atrial fibrilliation s[place] [address] [place]oomis was sent in to the ED by his PCP for evaluation of bloody urine. Problem List: 1. Hematuria 2. UTI 3. EMRE 4. Hypertension 5. Hyperlipidemia 6. Anemia #Hematuria-patient has been CBI since yesterday, CVI became clogged yesterday patient will be due to clot in the evening cleared manually by nurse. - Urology is following patinet, will attempt off CBI---Attempted to take off CBI today, patient had passed a 60 mL's of urine, bedside ultrasound showed 900 mL's of urine, change to Desai will continue to monitor - CBI has been clamped since yesterday, patient is producing blood tinged urine about 50-100mL in bag, cath will remain in place today, if patient produces clear urine output will try voiding trial tomorrow. - Manual desai irritation qshift #UTI-patient was seen by Dr. 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 -Continue Ampicillin 1000mg q6 #Anemia- dilutional vs blood loss. H/H trending downward, patient is asymptomatic. 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 Hematuria Pain Ratin Pain Location: n/a Pain Goal: Remain pain free Pain Plan: tylenol Tomorrow's Labs & Rationales: none
[2018-03-01 09:02] LABS: ABSOLUTE BASOPHIL COUNT 0 /CUMM (0.0-0.2); ABSOLUTE EOSINOPHIL COUNT 0.1 /CUMM (0.0-0.7); ABSOLUTE GRANULOCYTE CT 6.7 /CUMM (1.4-6.5); ABSOLUTE LYMPH COUNT 1.5 /CUMM (1.2-3.4); ABSOLUTE MONOCYTE COUNT 1.1 /CUMM (0.10-0.60); BASOPHIL % 0.3 % (0.0-2.0); EOSINOPHIL % 1.5 % (0-5); GRANULOCYTE % 70.9 % (42.2-75.2); HEMATOCRIT 35.1 % (42-52); MEAN CORPUSCULAR HGB 30.6 PG (27.0-31.0); MEAN CORPUSCULAR HGB CONC 33.9 G/DL (33.0-37.0); MEAN CORPUSCULAR VOLUME 90.1 FL (80.0-94.0); PLATELET COUNT 235 /CUMM (130-400); RBC DISTRIBUTION WIDTH 13.6 % (11.5-14.5); WHITE BLOOD CELL COUNT 9.5 /CUMM (4.8-10.8)
[2018-03-01 14:26] VITALS: BP 120/58
[2018-03-01 21:54] VITALS: BP 120/70
[2018-03-02 06:46] VITALS: BP 150/74
--- NOTE | 2018-03-02 07:38 | PN- Urology ---
Subjective Subjective: Patient comfortable Objective Vital Signs and I&Os Vital Signs Date Time Temp Pulse Resp B/P B/P Pulse O2 O2 Flow FiO2 Mean Ox Delivery Rate 03/02 0646 97.8 84 20 150/74 95 Room Air 03/01 2154 98.9 84 22 120/70 97 Room Air 03/01 1426 98.5 83 24 120/58 96 03/01 1048 Room Air Room Air 03/01 0922 99.1 61 18 128/60 03/01 0921 99.1 61 18 128/60 Intake & Output 03/02 0800 03/02 0000 03/01 1600 03/01 0800 03/01 0000 02/28 1600 Intake Total 620 360 540 560 500 800 Output Total 400 200 300 550 800 Balance 220 160 240 10 500 0 Intake, IV 260 200 200 100 Intake, Oral 360 360 340 360 400 800 Output, Urine 400 200 300 550 800 Abd: soft and non tender Genitalia: desai in place. CBI is off. Urine draining from desai is clear Laboratory Tests 03/01 0815 Chemistry Sodium (137 - 145 mmol/L) 137 Potassium (3.5 - 5.1 mmol/L) 3.9 Chloride (98 - 107 mmol/L) 107 Carbon Dioxide (22 - 30 mmol/L) 21 L Anion Gap (5 - 16) 9 BUN (9 - 20 mg/dL) 14 Creatinine (0.7 - 1.2 mg/dL) 0.7 Estimated GFR (>60 ml/min) > 60 BUN/Creatinine Ratio (7 - 25 %) 20.0 Hematology CBC w Diff NO MAN DIFF REQ WBC (4.8 - 10.8 /CUMM) 9.5 RBC (4.70 - 6.10 /CUMM) 3.90 L Hgb (14.0 - 18.0 G/DL) 11.9 L Hct (42 - 52 %) 35.1 L MCV (80.0 - 94.0 FL) 90.1 MCH (27.0 - 31.0 PG) 30.6 MCHC (33.0 - 37.0 G/DL) 33.9 RDW (11.5 - 14.5 %) 13.6 Plt Count (130 - 400 /CUMM) 235 MPV (7.4 - 10.4 FL) 11.0 H Gran % (42.2 - 75.2 %) 70.9 Lymphocytes % (20.5 - 51.1 %) 15.4 L Monocytes % (1.7 - 9.3 %) 11.9 H Eosinophils % (0 - 5 %) 1.5 Basophils % (0.0 - 2.0 %) 0.3 Absolute Granulocytes (1.4 - 6.5 /CUMM) 6.7 H Absolute Lymphocytes (1.2 - 3.4 /CUMM) 1.5 Absolute Monocytes (0.10 - 0.60 /CUMM) 1.1 H Absolute Eosinophils (0.0 - 0.7 /CUMM) 0.1 Absolute Basophils (0.0 - 0.2 /CUMM) 0 Assessment/Plan Assessment/Plan Imp: 1. Gross hematuria resolved. Was likely infection-related 2. Urinary retention, ? related to clot retention or UTI vs BPH (patient has had TURP in the past) Plan: 1. Would remove desai today for void trial 2. Have nurses check pvr by bladder scan 3. If bladder scan greater than 400 cc would replace desai 4. Continue po abx 5. If patient able to void adequately can be discharged without desai. If unable to void adequately will need to be discharged with desai 6 He needs f/u appointment in our office for cystoscopy to complete w/u for hematuria and UTI
--- NOTE | 2018-03-02 08:34 | PN- Housestaff ---
See Addendum Subjective Follow-up For: Hematuria Subjective: No acute events overnight, afebrile. Patient has no complaint of today Review of Systems Constitutional: Reports: see HPI. Objective Last 24 Hrs of Vital Signs/I&O Vital Signs Date Time Temp Pulse Resp B/P B/P Pulse O2 O2 Flow FiO2 Mean Ox Delivery Rate 03/02 0646 97.8 84 20 150/74 95 Room Air 03/01 2154 98.9 84 22 120/70 97 Room Air 03/01 1426 98.5 83 24 120/58 96 03/01 1048 Room Air Room Air 03/01 0922 99.1 61 18 128/60 03/01 0921 99.1 61 18 128/60 Intake & Output 03/02 1600 03/02 0800 03/02 0000 Intake Total 620 360 Output Total 400 200 Balance 220 160 Intake, IV 260 Intake, Oral 360 360 Output, Urine 400 200 Physical Exam General Appearance: Alert, Oriented X3, Cooperative Skin: No Rashes Cardiovascular: Regular Rate, Normal S1, Normal S2 Lungs: Clear to Auscultation, Normal Air Movement Abdomen: Normal Bowel Sounds, Soft, No Tenderness Extremities: No Cyanosis, No Edema, Normal Pulses Reproductive (MALE) Pena IN PLACE, PRODUCING BLOOD-TINGED URINE Current Medications: Current Medications Sig/Markos Start time Last Medication Dose Route Stop Time Status Admin Acetaminophen 650 MG Q6P PRN 02/27 1530 AC PO Ampicillin 1,000 MG Q6 02/27 1800 AC 03/02 Sodium Chloride 100 ML IV 0527 Atorvastatin Calcium 20 MG 1700 02/27 1700 AC 03/01 PO 1720 Cholecalciferol 1,000 IU DAILY 02/27 1611 AC 03/01 PO 0921 Magnesium Oxide 400 MG DAILY 02/28 0900 AC 03/01 PO 0921 Metoprolol Succinate 50 MG DAILY 02/28 09 AC 03/01 PO 0921 Tamsulosin HCl 0.4 MG DAILY 02/28 900 AC 03/01 PO 09 Assessment/Plan Assessment: 87 yo M with PMH of hypertension, hyperlipidemia and atrial fibrilliation s/[place] [address] [place]oomis was sent in to the ED by his PCP for evaluation of bloody urine. Problem List: 1. Hematuria 2. UTI 3. EMRE 4. Hypertension 5. Hyperlipidemia 6. Anemia #Hematuria-patient has been CBI since yesterday, CVI became clogged yesterday patient will be due to clot in the evening cleared manually by nurse. - Urology is following katarina, will attempt off CBI---Attempted to take off CBI today, patient had passed a 60 mL's of urine, bedside ultrasound showed 900 mL's of urine, change to Pena will continue to monitor - Voiding trial today, followed by postvoid residual if greater than 400 cc replace Pena. If patient would adequately will be be discharged without Pena, unable to void adequately then will be discharged with Pena, per urology recs #UTI-patient was seen by Dr. 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 -Continue Ampicillin 1000mg q6 day 10/12. - will send home with Augementin for 4 days when ready for discharge #Anemia- dilutional vs blood loss. H/H trending downward, patient is asymptomatic. 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 Hematuria Pain Ratin Pain Location: n/a Pain Goal: Pain 4 or less Pain Plan: tylenol Tomorrow's Labs & Rationales: cbc
[2018-03-02] MEDS ORDERED: AMOX-CLAV 875-1 EACH PO (08:51)
--- NOTE | 2018-03-02 09:00 | Patient Discharge Instructions ---
Discharge Instructions General Discharge Information You were seen/treated for: Hematuria and Urinary Tract Infection You had these procedures: no procedures were performed Watch for these problems: Fever, Chest Pain, Shortness of Breath, blood in urine Special Instructions: Please complete antibiotics as directed. Hold eliquis until determined by urologist. Follow up with Jaci on tuesday03/06/18 Diet Continue normal diet: Yes Activity Full Activity/No Limits: Yes Acute Coronary Syndrome Inclusion Criteria At DC or during hospital stay patient has or had the following: ACS DIAGNOSIS No Discharge Core Measures Meds if any: Prescribed or Continued at Discharge Meds if any: NOT Prescribed or Continued at Discharge Congestive Heart Failure Inclusion Criteria At DC or during hospital stay patient has or had the following: CHF DIAGNOSIS No Discharge Core Measures Meds if any: Prescribed or Continued at Discharge Meds if any: NOT Prescribed or Continued at Discharge Cerebrovascular accident Inclusion Criteria At DC or during hospital stay patient has or had the following: CVA/TIA Diagnosis No Discharge Core Measures Meds if any: Prescribed or Continued at Discharge Meds if any: NOT Prescribed or Continued at Discharge Venous thromboembolism Inclusion Criteria VTE Diagnosis No VTE Type NONE VTE Confirmed by (Test) NONE Discharge Core Measures - Per Current guidelines, there needs to be overlap - treatment for the first 5 days of Warfarin therapy. - If discharged on Warfarin prior to 5 days of - overlap therapy, the patient will need to be - assessed for post discharge needs including - *Post discharge parental anticoagulation - *Warfarin and/or parental anticoagulation education - *Follow up date to check INR post discharge At least 5 days overlap therapy as Inpatient Yes Meds if any: Prescribed or Continued at Discharge Note: Overlap Therapy is Warfarin and Anticoagulant Meds if any: NOT Prescribed or Continued at Discharge
[2018-03-02 09:35] LABS: ABSOLUTE BASOPHIL COUNT 0.1 /CUMM (0.0-0.2); ABSOLUTE EOSINOPHIL COUNT 0.1 /CUMM (0.0-0.7); ABSOLUTE GRANULOCYTE CT 7.6 /CUMM (1.4-6.5); ABSOLUTE LYMPH COUNT 1.4 /CUMM (1.2-3.4); ABSOLUTE MONOCYTE COUNT 0.9 /CUMM (0.10-0.60); BASOPHIL % 1.2 % (0.0-2.0); GRANULOCYTE % 74.4 % (42.2-75.2); MEAN CORPUSCULAR HGB 30.3 PG (27.0-31.0); MEAN CORPUSCULAR HGB CONC 33.3 G/DL (33.0-37.0); MEAN CORPUSCULAR VOLUME 90.9 FL (80.0-94.0); MEAN PLATELET VOLUME 10.8 FL (7.4-10.4); PLATELET COUNT 243 /CUMM (130-400); RBC DISTRIBUTION WIDTH 13.4 % (11.5-14.5); RED BLOOD CELL CT 4.18 /CUMM (4.70-6.10); WHITE BLOOD CELL COUNT 10.2 /CUMM (4.8-10.8)
[2018-03-02 14:53] VITALS: BP 110/65
--- NOTE | 2018-03-02 17:28 | PN- Urology ---
Surgical Brief Attending Note Brief Attending Note: Patient had desai removed this AM. Urine in desai was clear. He did not void spontaneously. He was bladder scanned for 465 cc and desai was reinserted. Bloody urine obtained. Desai is now drainin light pink urine. Plan: 1. Hold anticoagulaion for now 2. If urine clear in morning will likely d/c home with desai and f/u in office for cysto to complete w/u for UTI and hematuria. 3. Will deccide on restarting anticoagulation depending on what urine looks like over next few days 4. Nurses may manually irrigate desai prn not draining well
[2018-03-02 22:10] VITALS: BP 142/60
[2018-03-03 06:50] VITALS: BP 138/60
--- NOTE | 2018-03-03 07:03 | PN- Urology ---
Subjective Subjective: Patient sleeping Objective Vital Signs and I&Os Vital Signs Date Time Temp Pulse Resp B/P B/P Pulse O2 O2 Flow FiO2 Mean Ox Delivery Rate 03/03 0650 97.9 77 20 138/60 94 Room Air 03/02 2210 98.9 81 18 142/60 94 03/02 1453 98.2 79 20 110/65 94 Room Air 03/02 1004 97.8 84 20 150/74 03/02 1003 97.8 84 20 150/74 Intake & Output 03/03 0803/03 0000 03/02 1600 03/02 0800 03/02 0000 03/01 1600 Intake Total 240 800 460 620 360 540 Output Total 750 400 200 300 Balance 240 50 460 220 160 240 Intake, IV 100 260 200 Intake, Oral 240 800 360 360 360 340 Output, Urine 750 400 200 300 Patient 197 lb Weight Desai in place. Urine clear with few small clots Laboratory Tests 03/02 0900 Hematology CBC w Diff NO MAN DIFF REQ WBC (4.8 - 10.8 /CUMM) 10.2 RBC (4.70 - 6.10 /CUMM) 4.18 L Hgb (14.0 - 18.0 G/DL) 12.7 L Hct (42 - 52 %) 38.0 L MCV (80.0 - 94.0 FL) 90.9 MCH (27.0 - 31.0 PG) 30.3 MCHC (33.0 - 37.0 G/DL) 33.3 RDW (11.5 - 14.5 %) 13.4 Plt Count (130 - 400 /CUMM) 243 MPV (7.4 - 10.4 FL) 10.8 H Gran % (42.2 - 75.2 %) 74.4 Lymphocytes % (20.5 - 51.1 %) 14.1 L Monocytes % (1.7 - 9.3 %) 9.3 Eosinophils % (0 - 5 %) 1.0 Basophils % (0.0 - 2.0 %) 1.2 Absolute Granulocytes (1.4 - 6.5 /CUMM) 7.6 H Absolute Lymphocytes (1.2 - 3.4 /CUMM) 1.4 Absolute Monocytes (0.10 - 0.60 /CUMM) 0.9 H Absolute Eosinophils (0.0 - 0.7 /CUMM) 0.1 Absolute Basophils (0.0 - 0.2 /CUMM) 0.1 Assessment/Plan Assessment/Plan Imp: 1. Gross hematuria, improved. Likely infection-related 2. UTI Plan: 1. Continue Abx for UTI 2. OK to go home with desai and leg bag 3. Restart anticoagulation Tuesday at home if urine clear 4. f/u in my office in near future for cystoscopy
--- NOTE | 2018-03-03 09:54 | PN- Housestaff ---
See Addendum Subjective Follow-up For: Hematuria Subjective: No acute events over night, afebrile. Patient unable to pass urine yesterday, patient states he has been consuming liquids had approximately a pitcher of water and 5 cans of soda. Has no complaint of today, denies fever, night sweats , chills Review of Systems Constitutional: Reports: see HPI. Objective Last 24 Hrs of Vital Signs/I&O Vital Signs Date Time Temp Pulse Resp B/P B/P Pulse O2 O2 Flow FiO2 Mean Ox Delivery Rate 03/03 0748 97.9 77 20 138/60 03/03 0747 97.9 77 20 138/60 03/03 0650 97.9 77 20 138/60 94 Room Air 03/02 2210 98.9 81 18 142/60 94 03/02 1453 98.2 79 20 110/65 94 Room Air 03/02 1004 97.8 84 20 150/74 03/02 1003 97.8 84 20 150/74 Intake & Output 03/03 1600 03/03 0800 03/03 0000 Intake Total 240 800 Output Total 750 Balance 240 50 Intake, Oral 240 800 Output, Urine 750 Physical Exam General Appearance: Alert, Oriented X3, Cooperative Skin: No Rashes Cardiovascular: Regular Rate, Normal S1, Normal S2 Lungs: Clear to Auscultation, Normal Air Movement Abdomen: Normal Bowel Sounds, Soft, No Tenderness Reproductive (MALE) Farah in place, producing blood-tinged urine Current Medications: Current Medications Sig/Markos Start time Last Medication Dose Route Stop Time Status Admin Acetaminophen 650 MG Q6P PRN 02/27 1530 AC PO Ampicillin 1,000 MG Q6 02/27 1800 AC 03/03 Sodium Chloride 100 ML IV 0504 Apixaban 5 MG BID 03/02 09 DC 03/02 PO 1416 Atorvastatin Calcium 20 MG 1700 02/27 1700 AC 03/02 PO 1634 Cholecalciferol 1,000 IU DAILY 02/27 1611 AC 03/03 PO 0748 Magnesium Oxide 400 MG DAILY 02/28 09 AC 03/03 PO 0747 Metoprolol Succinate 50 MG DAILY 02/28 09 AC 03/03 PO 0747 Patient Medication 1 ED ONE ONE 03/02 1645 DC 03/02 Teaching ED 03/02 1646 1723 Tamsulosin HCl 0.4 MG DAILY 02/28 0900 AC 03/03 PO 0748 Assessment/Plan Assessment: 87 yo M with PMH of hypertension, hyperlipidemia and atrial fibrilliation s/[place] [address] [place]oomis was sent in to the ED by his PCP for evaluation of bloody urine. Problem List: 1. Hematuria 2. UTI 3. EMRE 4. Hypertension 5. Hyperlipidemia 6. Anemia #Hematuria-patient has been CBI since yesterday, CVI became clogged yesterday patient will be due to clot in the evening cleared manually by nurse. -Patient failed voiding voiding trial yesterday, produced very little urine, bedside bladder ultrasound showed more than 450 cc of urine. Farah was reinserted patient produced bloody urine with clots bladder was irrigated. discharging patient. #UTI-patient was seen by Dr. 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 -Continue Ampicillin 1000mg q6 day 11/12. - [facility] #Anemia- dilutional vs blood loss. H/H trending downward, patient is asymptomatic. 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 Hematuria Pain Ratin Pain Location: n/a Pain Goal: Remain pain free Pain Plan: Tylenol Tomorrow's Labs & Rationales: cbc Consulting Request: Consulting Specialty: Urology (Dr. Goldstein) Consulting Physician: Dr. Pedro Goldstein
[2018-03-03 12:46] LABS: ABSOLUTE BASOPHIL COUNT 0.1 /CUMM (0.0-0.2); ABSOLUTE EOSINOPHIL COUNT 0.2 /CUMM (0.0-0.7); ABSOLUTE GRANULOCYTE CT 7.8 /CUMM (1.4-6.5); ABSOLUTE LYMPH COUNT 1.7 /CUMM (1.2-3.4); BASOPHIL % 0.7 % (0.0-2.0); EOSINOPHIL % 1.6 % (0-5); GRANULOCYTE % 72.7 % (42.2-75.2); HEMATOCRIT 35.3 % (42-52); MEAN CORPUSCULAR HGB 30.6 PG (27.0-31.0); MEAN CORPUSCULAR HGB CONC 33.9 G/DL (33.0-37.0); MEAN CORPUSCULAR VOLUME 90.3 FL (80.0-94.0); MEAN PLATELET VOLUME 10.8 FL (7.4-10.4); PLATELET COUNT 257 /CUMM (130-400); RBC DISTRIBUTION WIDTH 13.4 % (11.5-14.5); RED BLOOD CELL CT 3.92 /CUMM (4.70-6.10); WHITE BLOOD CELL COUNT 10.8 /CUMM (4.8-10.8)
[2018-03-03 14:10] VITALS: BP 140/56
[2018-03-03] MEDS ORDERED: AMOX-CLAV 875-1 EACH PO (15:37)
== END 2018-03-03 17:25 | DRG 690 ==
LOC: ERH 10:13 → ERHI 15:10 → 2NA 15:10 → ENRESERV 16:04 → ENTRNSPT 16:26 → EDTRNSPTSTS 16:51 → EDTRNSPT 16:51 → 2NA 17:08 → CMPTRNSPT 17:09 → 2NA 03-01 15:37 → ENPENDDIS 03-03 15:44 → 2NA 03-03 17:25
PROVIDERS: Hospitalist; Internal Medicine; Physician Assistant Medical
DX: N39.0 Urinary tract infection, site not specified (principal); R31.0 Gross hematuria; I10 Essential (primary) hypertension; E78.5 Hyperlipidemia, unspecified; D64.9 Anemia, unspecified; B96.89 Other specified bacterial agents as the cause of diseases classified elsewhere; I48.91 Unspecified atrial fibrillation; Z79.01 Long term (current) use of anticoagulants; N40.1 Benign prostatic hyperplasia with lower urinary tract symptoms; R33.8 Other retention of urine; Z95.0 Presence of cardiac pacemaker; Z90.79 Acquired absence of other genital organ(s)
CPT/HCPCS: 2NASP; 6030; 36592; 74176; 81001; 82436; 82570; 87086; 93005; 93010; G0378; J0290; J0696

== ENCOUNTER 2018-03-05 11:17 | Emergency (ER) | payer OTHER ==
[~2018-03-05] VITALS: Ht 170.2 cm; Wt 86.2 kg
[~2018-03-05 11:17] MED LIST: AMOX-CLAV 875-1 EACH PO; CHLORTHALIDONE25 M1 PO; ELIQUIS5 M1 PO; LISINOPRIL40 M1 PO; LOVASTATIN40 M1 PO; MAGNESIUM500 M2 PO; METOPROLOL SUCC50 M2 PO; POTASSIUM99 M3 PO; TAMSULOSIN HCL0.4 M1 PO; VITAMIN D1000 UNIT PO
--- NOTE | 2018-03-05 12:14 | ED GI/GU/ABDOMINAL COMPLAINT ---
History of Present Illness General Chief Complaint: Male Genitourinary Problems Stated Complaint: CATHETER IRRIGATION Source: patient Exam Limitations: no limitations Allergies Coded Allergies: No Known Allergies (02/27/18) Reconcile Medications Amoxicillin/Clavulanate Potass (Amox-Clav 875-125 MG Tablet) 875 MG-125 MG TABLET 1 TAB PO BID UTI Chlorthalidone 25 MG TABLET 1 TAB PO DAILY WATER RETENTION (Reported) Cholecalciferol (Vitamin D3) (Vitamin D) 1,000 UNIT TABLET 1 TAB PO DAILY VITAMIN SUPPORT (Reported) Lisinopril 40 MG TABLET 1 TAB PO DAILY HEART (Reported) Lovastatin 40 MG TABLET 1.5 TAB PO DAILY CHOLESTEROL (Reported) with food Magnesium Oxide (Magnesium) 500 MG CAPSULE 1 CAP PO DAILY SUPPLEMENT ( Reported) Metoprolol Succinate 50 MG TAB.ER.24H 1 TAB PO DAILY HEART (Reported) Potassium 99 MG TABLET 1 TAB PO DAILY SUPPLEMENT (Reported) Tamsulosin HCl 0.4 MG CAP.ER.24H 1 CAP PO DAILY BPH (Reported) Triage Note: PT FROM HOME C/O HATHAWAY CATHETER IS NOT DRAINING PROPERLY. PT STATES SINCE TUESDAY MORNING AROUND 1000 PT HAS NOT URINATED FULLY IN THE CATHETER BAG . PT REPORTS NORMAL EATING AND DRINKING HABITS. PT STATES "I FEEL LIKE I HAVE TO GO PEE, BUT I CANT" VSS. Triage Nurses Notes Reviewed? yes Onset: Abrupt Duration: day(s): Timing: recent history Radiation: no radiation Activities at Onset: none No Modifying Factors: none HPI: 87-year-old male comes into the emergency room for further evaluation of Hathaway catheter not draining. Patient reports that he was here recently this past week and admitted and had a catheter placed due to inability to urinate. He is due to have a cystoscopy tomorrow. He reports that the catheter is not draining for the last 24 hours. He's had some increased pressure in his lower abdomen. Denies any fever chills vomiting. Comes in for further evaluation. He is on eliquis. (Paco Campbell) Vital Signs & Intake/Output Vital Signs & Intake/Output Vital Signs Date Time Temp Pulse Resp B/P B/P Pulse O2 O2 Flow FiO2 Mean Ox Delivery Rate 03/05 1335 97.8 75 18 164/73 98 Room Air 03/05 1143 98.1 75 18 167/65 96 Room Air (Kash SANTOS,[facility]) Past History Travel History Traveled to [place] past 21 day No Medical History Any Pertinent Medical History? 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 No (Paco Campbell) Review of Systems Review of Systems Constitutional: Reports: no symptoms. EENTM: Reports: no symptoms. Respiratory: Reports: no symptoms. Cardiovascular: Reports: no symptoms. GI: Reports: no symptoms. Genitourinary: Reports: see HPI. Musculoskeletal: Reports: no symptoms. Skin: Reports: no symptoms. Neurological/Psychological: Reports: no symptoms. Hematologic/Endocrine: Reports: no symptoms. Immunologic/Allergic: Reports: no symptoms. All Other Systems: Reviewed and Negative (Paco Campbell) Physical Exam Physical Exam General Appearance: well developed/nourished, alert, awake Head: atraumatic Eyes: Bilateral: normal appearance. Ears, Nose, Throat, Mouth: hearing grossly normal Neck: normal inspection Respiratory: no respiratory distress Gastrointestinal: soft, non-tender Back: normal inspection Extremities: normal range of motion Neurologic/Psych: awake, alert, oriented x 3 Skin: intact Core Measures ACS in differential dx? No Sepsis Present: No Sepsis Focused Exam Completed? No (Paco Campbell) Progress Differential Diagnosis: testicular torsion, ureterolithiasis, urinary retention, urethritis, UTI/pyelo Plan of Care: Orders Procedure Date/time Status CBC WITHOUT DIFFERENTIAL 03/05 1212 Complete BASIC METABOLIC PANEL 03/05 1212 Complete Laboratory Tests 03/05/18 1221: Anion Gap 9, Estimated GFR > 60, BUN/Creatinine Ratio 15.0, Glucose 91, Calcium 8.6, CBC w Diff NO MAN DIFF REQ, RBC 4.14 L, MCV 90.5, MCH 30.2, MCHC 33.4, RDW 13.7, MPV 9.8, Gran % 70.0, Lymphocytes % 16.3 L, Monocytes % 8.7, Eosinophils % 3.8, Basophils % 1.2, Absolute Granulocytes 5.8, Absolute Lymphocytes 1.4, Absolute Monocytes 0.7 H, Absolute Eosinophils 0.3, Absolute Basophils 0.1 Initial ED EKG: none (Paco Campbell) Departure Departure Disposition: HOME OR SELF CARE Condition: Stable Clinical Impression Primary Impression: Urinary retention Secondary Impressions: Hathaway catheter problem Referrals: Chalo SANTOS,James Guerrero (PCP/Family) Additional Instructions: Follow-up with urologist tomorrow. Return if any concerns worsening symptoms. Please go over all results of today's visit with your primary care doctor. Contact your primary care doctor to let them know you were here in the emergency room. There may be nonspecific findings which may not be related to your visit today here in the emergency room but may require further evaluation and chronic monitoring by your primary care doctor. If you had a laceration today the chance of foreign body always remains. You should follow-up with your primary care doctor for recheck in 3-5 days for a wound check. If you had an x-ray done there is a chance that a fracture could have been missed on initial read and you should follow-up with your primary care doctor for repeat x-rays if symptoms persist. If your blood pressure was elevated here in the emergency room please have rechecked by [facility] primary care doctor within the next 48. If you were prescribed a narcotic here in the emergency room or any type of controlled substances you're not allowed to drive while taking this medication or operate any type of heavy machinery. Narcotics can make you feel lightheaded dizziness nausea and can cause constipation. You may need to cook pickled meat a stool softener. Thank you for choosing [facility] emergency room. Please return to the emergency room immediately if you have any other concerns worsening of symptoms. Departure Forms: Customer Survey General Discharge Information Comments 03/05/2018 2:23:58 PM Catheter is draining after being flushed and adjusted. He clinically looks well. H&H is stable. He had one small clot in the urine bag otherwise no clots. Do not feel CBI is indicated at this time. He has an appointment with urology for cystoscopy tomorrow and can follow-up as outpatient tomorrow as already scheduled. (Paco Campbell) PA/GLOBAL PROCESS OWNER Co-Sign Statement Statement: ED Attending supervision documentation- [x] I saw and evaluated the patient. I have also reviewed all the pertinent lab results and diagnostic results. I agree with the findings and the plan of care as documented in the PA's/GLOBAL PROCESS OWNER's documentation. [] I have reviewed the ED Record and agree with the PA's/GLOBAL PROCESS OWNER's documentation. [] Additions or exceptions (if any) to the PAs/GLOBAL PROCESS OWNER's note and plan are summarized below: 87 yo male comes in with urinary retention, now relieved with flushing of the Hathaway catheter. non toxic with bening exam. Normal exam. No CVA tenderness. Soft benign abdomen. Previous records reveal that the patient was recently admitted for hematuria. He is on Eliquis. The patient needed CBI and he is on treatment for presumed UTI though the urine culture is negative. The patient still has hematuria but it is not gross at his cola colored urine. Given this presentation I had a long discussion with the patient and son and discussed the risk of having an obstruction again. I wish to call the urologist and possibly admit the patient. The patient does have stable vital signs and hemoglobin and is not showing any signs of acute blood loss. The son and the patient do not want to stay in the hospital. The patient really wants to go home. He has an appointment tomorrow for cystoscopy. He reports that he has had this hematuria for a week now and it is improving so he does not wish to stay in the hospital. I had a long discussion discussing the risk of acute hemorrhage and the risk of acute obstruction with him. The son was present for this discussion. The patient absolutely refuses to stay in the hospital. I will not call urology in this case and the patient has a scheduled cystoscopy tomorrow. Also he has stable vital signs and hemoglobin and he walked stably out of the emergency room. I will discharge him per his wishes with close follow-up. (Kash SANTOS,[facility])
[2018-03-05 12:33] LABS: ABSOLUTE BASOPHIL COUNT 0.1 /CUMM (0.0-0.2); ABSOLUTE EOSINOPHIL COUNT 0.3 /CUMM (0.0-0.7); ABSOLUTE GRANULOCYTE CT 5.8 /CUMM (1.4-6.5); ABSOLUTE LYMPH COUNT 1.4 /CUMM (1.2-3.4); ABSOLUTE MONOCYTE COUNT 0.7 /CUMM (0.10-0.60); BASOPHIL % 1.2 % (0.0-2.0); EOSINOPHIL % 3.8 % (0-5); HEMATOCRIT 37.5 % (42-52); MEAN CORPUSCULAR HGB 30.2 PG (27.0-31.0); MEAN CORPUSCULAR HGB CONC 33.4 G/DL (33.0-37.0); MEAN CORPUSCULAR VOLUME 90.5 FL (80.0-94.0); MEAN PLATELET VOLUME 9.8 FL (7.4-10.4); PLATELET COUNT 347 /CUMM (130-400); RBC DISTRIBUTION WIDTH 13.7 % (11.5-14.5); RED BLOOD CELL CT 4.14 /CUMM (4.70-6.10); WHITE BLOOD CELL COUNT 8.3 /CUMM (4.8-10.8)
[2018-03-05 13:35] VITALS: BP 164/73
== END 2018-03-05 14:09 ==
LOC: ERH 11:17
PROVIDERS: Physician Assistant Medical
DX: R33.9 Retention of urine, unspecified (principal); T83.9XXA Unspecified complication of genitourinary prosthetic device, implant and graft, initial encounter